=== PATIENT | female | born 1960 | race Caucasian/White ===

== ENCOUNTER 2017-05-06 16:06 | Emergency (ER) | payer OTHER ==
[~2017-05-06] VITALS: Ht 165.1 cm; Wt 65.0 kg
[2017-05-06 16:36] LABS: HEMATOCRIT 49.7 % (34.6-47.8); HEMOGLOBIN 16.9 g/dL (11.7-16.4); WHITE BLOOD COUNT 9.3 x10^3/uL (3.4-10)
[2017-05-06 16:54] LABS: BLOOD UREA NITROGEN 15 mg/dL (7-18)
[2017-05-06 16:59] LABS: ACETAMINOPHEN < 2 mcg/mL (10-30)
[2017-05-06 17:24] LABS: DAU SCREEN DISCLAIMER
[2017-05-06 23:11] VITALS: BP 136/82
== END 2017-05-07 00:48 | disposition home or self-care (01) ==
LOC: ED 17:21
DX: R45.851 Suicidal ideations (principal); F41.1 Generalized anxiety disorder; F10.120 Alcohol abuse with intoxication, uncomplicated; F43.12 Post-traumatic stress disorder, chronic; F32.0 Major depressive disorder, single episode, mild
CPT/HCPCS: 36415; 80048; 80307; 80329; 82040; 85025; 99284; G0480

== ENCOUNTER 2017-09-13 09:20 | Emergency (ER) | payer OTHER ==
[~2017-09-13] VITALS: Ht 154.9 cm; Wt 67.3 kg
[2017-09-13 09:42] VITALS: BP 118/73
[2017-09-13 10:41] LABS: BASOPHILS # (AUTO) 0.06 x10^3/uL (0-0.1); BASOPHILS % (AUTO) 1 % (0-1); EOSINOPHILS # (AUTO) 0.09 x10^3/uL (0-0.4); EOSINOPHILS % (AUTO) 1 % (1-7); LYMPHOCYTES # (AUTO) 1.03 x10^3/uL (1-3.4); LYMPHOCYTES % (AUTO) 8 % (22-44); MD NO; MEAN CORPUSCULAR HEMOGLOBIN 34.4 pg (27.0-34.8); MEAN CORPUSCULAR HGB CONC 33.9 g/dL (32.4-35.8); MEAN CORPUSCULAR VOLUME 101.6 fL (80-100); MEAN PLATELET VOLUME 8.7 fL (7.4-10.4); MONOCYTES # (AUTO) 0.94 x10^3/uL (0.2-0.8); MONOCYTES % (AUTO) 7 % (2-9); NEUTROPHILS # (AUTO) 11.02 x10^3/uL (1.8-6.8); NEUTROPHILS % (AUTO) 84 % (42-75); PLATELET COUNT 265 x10^3/uL (130-400); RED BLOOD COUNT 4.33 x10^6/uL (3.82-5.3)
[2017-09-13 10:52] LABS: ALANINE AMINOTRANSFERASE 43 U/L (12-78); ALBUMIN 3.7 g/dL (3.4-5.0); ANION GAP 7 mmol/L (5-15); CALCIUM 9.2 mg/dL (8.5-10.1); CHLORIDE 110 mmol/L (98-107); CREATININE 1.57 mg/dL (0.55-1.02)
[2017-09-13 10:55] LABS: ALKALINE PHOSPHATASE 89 U/L (45-117); BILIRUBIN,TOTAL 0.8 mg/dL (0.2-1.0)
[2017-09-13] MEDS ORDERED: RANI150T4 PO (12:04)
[2017-09-13] MEDS ORDERED: BUSP5TAB2 PO (12:04)
[2017-09-13] MEDS ORDERED: ALPR0.5T6 PO (12:04)
[2017-09-13] MEDS ORDERED: LISI-170 PO (12:04)
[2017-09-13] MEDS ORDERED: CETI-158 PO (12:04)
== END 2017-09-13 12:56 | disposition home or self-care (01) ==
LOC: ED 11:59
DX: R10.13 Epigastric pain (principal); B02.9 Zoster without complications
CPT/HCPCS: 36415; 80053; 83690; 85025; 99284

== ENCOUNTER → 2017-12-08 | Outpatient (CLI) | payer OTHER ==
[~2017-12-08] MED LIST: ALPR0.5T6 PO; BUSP5TAB2 PO; CETI-158 PO; LISI-170 PO; RANI150T4 PO
== END | disposition home or self-care (01) ==
LOC: CFH 09:00
PROVIDERS: ATTEND Internal Medicine
DX: Z12.31 Encounter for screening mammogram for malignant neoplasm of breast (principal)
CPT/HCPCS: 77067

== ENCOUNTER 2018-03-07 10:36 | Inpatient (IN) | payer OTHER ==
[~2018-03-07] VITALS: Ht 170.2 cm; Wt 64.8 kg
[2018-03-07] MEDS ORDERED: NALOXONE 1 MG/ML, 2ML ONE (10:57)
[2018-03-07] MEDS ORDERED: NALOXONE 0.4 MG/ML, 1ML IVPush ONE (11:00)
[2018-03-07] MEDS ORDERED: SODIUM CHLORIDE FLUSH 10ML SYR IVF ONE (11:00)
[2018-03-07] MEDS ORDERED: PLEASE ENTER HEIGHT AND WEIGHT MC SCH (11:00)
[2018-03-07 11:07] LABS: BASOPHILS # (AUTO) 0.02 x10^3/uL (0-0.1); BASOPHILS % (AUTO) 0 % (0-1); EOSINOPHILS # (AUTO) 0.18 x10^3/uL (0-0.4); EOSINOPHILS % (AUTO) 2 % (1-7); LYMPHOCYTES # (AUTO) 2.02 x10^3/uL (1-3.4); LYMPHOCYTES % (AUTO) 26 % (22-44); MD NO; MEAN CORPUSCULAR HEMOGLOBIN 35.3 pg (27.0-34.8); MEAN CORPUSCULAR HGB CONC 34.6 g/dL (32.4-35.8); MEAN CORPUSCULAR VOLUME 102.1 fL (80-100); MEAN PLATELET VOLUME 8.2 fL (7.4-10.4); MONOCYTES # (AUTO) 0.55 x10^3/uL (0.2-0.8); MONOCYTES % (AUTO) 7 % (2-9); NEUTROPHILS # (AUTO) 5.14 x10^3/uL (1.8-6.8); NEUTROPHILS % (AUTO) 65 % (42-75); PLATELET COUNT 296 x10^3/uL (130-400); RED BLOOD COUNT 4.19 x10^6/uL (3.82-5.3); RED CELL DISTRIBUTION WIDTH 14.9 % (9.6-15.2)
[2018-03-07 11:20] LABS: ALANINE AMINOTRANSFERASE 37 U/L (12-78); ALBUMIN 3.2 g/dL (3.4-5.0); ANION GAP 8 mmol/L (5-15); CALCIUM 8.3 mg/dL (8.5-10.1); CHLORIDE 113 mmol/L (98-107); CREATININE 0.62 mg/dL (0.55-1.02); SALICYLATE LEVEL 5.7 mg/dL (2.8-20.0)
[2018-03-07 11:24] LABS: ALKALINE PHOSPHATASE 73 U/L (45-117); BILIRUBIN,TOTAL 0.1 mg/dL (0.2-1.0); TOTAL PROTEIN 6.4 g/dL (6.4-8.2); TROPONIN I < 0.015 ng/mL (0.000-0.045)
[2018-03-07] MEDS ORDERED: ETOMIDATE 40 MG/20 ML ONE (12:00)
[2018-03-07] MEDS ORDERED: PROPOFOL 10 MG/ML, 100ML IV ONE (12:00)
[2018-03-07] MEDS ORDERED: ROCURONIUM 10 MG/ML,10ML ONE (12:00)
[2018-03-07 12:22] LABS: MICROSCOPIC INDICATED
[2018-03-07] MEDS ORDERED: PROPOFOL 100 ML IV PRN (12:30)
[2018-03-07] MEDS ORDERED: ROCURONIUM 10 MG/ML,10ML IVPush ONE (12:30)
[2018-03-07] MEDS ORDERED: ETOMIDATE 20 MG/10 ML IVPush ONE (12:30)
[2018-03-07 12:42] LABS: CULTURE INDICATED? NO
[2018-03-07 12:47] LABS: AMPHETAMINE SCREEN, URINE Negative (Negative); BARBITURATE SCREEN, URINE Negative (Negative); BENZODIAZEPINE SCREEN, URINE Positive (Negative); CANNABINOID SCREEN, URINE Negative (Negative); COCAINE SCREEN, URINE Negative (Negative); METHADONE SCREEN, URINE Negative (Negative); OPIATE SCREEN, URINE Negative (Negative)
[2018-03-07 13:12] VITALS: BP 165/92
[2018-03-07 13:17] LABS: FIO2 100 %
[2018-03-07] MEDS ORDERED: ONDANSETRON 2MG/ML, 2ML IVPush PRN (15:30)
[2018-03-07] MEDS ORDERED: THIAMINE 200 MG, MVI ADULT 10 ML, FOLIC ACID 1 MG in D5%-0.9% NACL 1,000 ML IV SCH (15:30)
[2018-03-07] MEDS ORDERED: LACTULOSE 20 GM/30 ML UDC NG PRN (16:00)
[2018-03-07] MEDS ORDERED: SENNOSIDES 8.8 MG/5 ML ORAL SOL NG PRN (16:00)
[2018-03-07] MEDS ORDERED: BISACODYL 10 MG SUPP PR PRN (16:00)
[2018-03-07] MEDS ORDERED: ENOXAPARIN 40 MG/0.4 ML SQ SCH (16:00)
[2018-03-07] MEDS ORDERED: PHARMACY MAY ADJ FOR RENAL FX MC SCH (16:00)
[2018-03-07] MEDS ORDERED: SENNA/DOCUSATE TABLET NG PRN (16:00)
[2018-03-07] MEDS ORDERED: LIDOCAINE-MPF 1%, 2ML ENDO PRN (16:00)
[2018-03-07] MEDS: ENOXAPARIN 40 MG/0.4 ML SQ SCH (16:04)
[2018-03-07] MEDS: FAMOTIDINE 20 MG/2 ML IV SCH (16:10)
[2018-03-07] MEDS: ALBUTEROL/IPRATROPIUM 2.5MG/0.5MG, 3 ML INLINE SCH ×3 (16:24→23:21)
[2018-03-07] MEDS: SODIUM CHLORIDE 0.9% 1,000 ML IV SCH (16:30)
[2018-03-07 16:34] LABS: TRIGLYCERIDES 132 mg/dL (50-200)
[2018-03-07 16:36] LABS: TROPONIN I < 0.015 ng/mL (0.000-0.045)
[2018-03-07] MEDS: PROPOFOL 100 ML IV PRN (20:41)
[2018-03-07] MEDS ORDERED: FAMOTIDINE 20 MG/2 ML IVPush SCH (21:00)
[2018-03-07 21:54] LABS: TROPONIN I < 0.015 ng/mL (0.000-0.045)
[2018-03-08] MEDS: FENTANYL PF 100 MCG/2ML IVPush PRN ×3 (00:12→05:32)
[2018-03-08] MEDS: SODIUM CHLORIDE 0.9% 1,000 ML IV SCH (02:46)
[2018-03-08] MEDS: PROPOFOL 100 ML IV PRN (02:46)
[2018-03-08] MEDS: ALBUTEROL/IPRATROPIUM 2.5MG/0.5MG, 3 ML INLINE SCH ×2 (03:27→06:29)
[2018-03-08] MEDS: FAMOTIDINE 20 MG/2 ML IV SCH (03:38)
[2018-03-08 04:00] VITALS: BP 146/88
[2018-03-08 04:23] LABS: BASOPHILS # (AUTO) 0.01 x10^3/uL (0-0.1); BASOPHILS % (AUTO) 0 % (0-1); EOSINOPHILS # (AUTO) 0.06 x10^3/uL (0-0.4); EOSINOPHILS % (AUTO) 1 % (1-7); LYMPHOCYTES # (AUTO) 1.38 x10^3/uL (1-3.4); LYMPHOCYTES % (AUTO) 13 % (22-44); MD NO; MEAN CORPUSCULAR HEMOGLOBIN 34.6 pg (27.0-34.8); MEAN CORPUSCULAR HGB CONC 33.6 g/dL (32.4-35.8); MEAN CORPUSCULAR VOLUME 102.9 fL (80-100); MEAN PLATELET VOLUME 8.4 fL (7.4-10.4); MONOCYTES # (AUTO) 0.47 x10^3/uL (0.2-0.8); MONOCYTES % (AUTO) 5 % (2-9); NEUTROPHILS # (AUTO) 8.55 x10^3/uL (1.8-6.8); NEUTROPHILS % (AUTO) 82 % (42-75); PLATELET COUNT 243 x10^3/uL (130-400); RED BLOOD COUNT 3.92 x10^6/uL (3.82-5.3); RED CELL DISTRIBUTION WIDTH 14.9 % (9.6-15.2)
[2018-03-08 04:35] LABS: ANION GAP 4 mmol/L (5-15); CALCIUM 7.8 mg/dL (8.5-10.1); CHLORIDE 118 mmol/L (98-107)
[2018-03-08 04:48] LABS: ALANINE AMINOTRANSFERASE 32 U/L (12-78); ALKALINE PHOSPHATASE 60 U/L (45-117); BILIRUBIN,TOTAL 0.5 mg/dL (0.2-1.0); CREATININE 0.65 mg/dL (0.55-1.02)
[2018-03-08] MEDS ORDERED: MAGNESIUM SULFATE IN WATER 50 ML IV ONE (07:00)
[2018-03-08] MEDS ORDERED: DEXTROSE 5% 1,000 ML IV SCH (07:00)
[2018-03-08] MEDS: AMPICILLIN/SULBACTAM 3 GM in SODIUM CHLORIDE 0.9% 100 ML IV SCH ×3 (09:10→22:32)
[2018-03-08] MEDS: FOLIC ACID 1 MG TABLET PO SCH (12:55)
[2018-03-08] MEDS: LISINOPRIL 20 MG TABLET PO SCH (12:55)
[2018-03-08] MEDS: MULTIVITAMINS/MINERALS TABLET PO SCH (12:55)
[2018-03-08] MEDS: THIAMINE 100MG TABLET PO SCH (12:55)
[2018-03-08] MEDS: ENOXAPARIN 40 MG/0.4 ML SQ SCH (15:54)
[2018-03-08 18:33] VITALS: BP 138/89
[2018-03-08] MEDS: FAMOTIDINE 20 MG TABLET PO SCH (22:27)
[2018-03-08] MEDS: ACETAMINOPHEN 325 MG TABLET PO PRN (22:27)
[2018-03-09 02:20] VITALS: BP 125/69
[2018-03-09 05:12] LABS: BASOPHILS # (AUTO) 0.02 x10^3/uL (0-0.1); BASOPHILS % (AUTO) 0 % (0-1); EOSINOPHILS # (AUTO) 0.15 x10^3/uL (0-0.4); EOSINOPHILS % (AUTO) 2 % (1-7); LYMPHOCYTES % (AUTO) 14 % (22-44); MD NO; MEAN CORPUSCULAR HEMOGLOBIN 35.6 pg (27.0-34.8); MEAN CORPUSCULAR HGB CONC 34.6 g/dL (32.4-35.8); MEAN PLATELET VOLUME 9.2 fL (7.4-10.4); MONOCYTES # (AUTO) 0.38 x10^3/uL (0.2-0.8); MONOCYTES % (AUTO) 5 % (2-9); NEUTROPHILS # (AUTO) 6.17 x10^3/uL (1.8-6.8); NEUTROPHILS % (AUTO) 79 % (42-75); PLATELET COUNT 210 x10^3/uL (130-400); RED BLOOD COUNT 3.55 x10^6/uL (3.82-5.3); RED CELL DISTRIBUTION WIDTH 14.3 % (9.6-15.2)
[2018-03-09 05:13] LABS: ALBUMIN 2.7 g/dL (3.4-5.0); ANION GAP 6 mmol/L (5-15); CALCIUM 8.2 mg/dL (8.5-10.1); CHLORIDE 112 mmol/L (98-107)
[2018-03-09] MEDS: AMPICILLIN/SULBACTAM 3 GM in SODIUM CHLORIDE 0.9% 100 ML IV SCH (05:15)
[2018-03-09 05:17] LABS: ALANINE AMINOTRANSFERASE 22 U/L (12-78); ALKALINE PHOSPHATASE 61 U/L (45-117); CREATININE 0.51 mg/dL (0.55-1.02); TOTAL PROTEIN 5.5 g/dL (6.4-8.2)
[2018-03-09 07:38] VITALS: BP 152/83
[2018-03-09] MEDS: AMOXICILLIN 500 MG CAPSULE PO SCH ×2 (08:18→20:29)
[2018-03-09] MEDS: LACTOBACILLUS CHEW TABLET PO SCH ×3 (08:18→20:29)
[2018-03-09] MEDS: FAMOTIDINE 20 MG TABLET PO SCH ×2 (08:19→20:29)
[2018-03-09] MEDS: DOXYCYCLINE 100MG CAP PO SCH ×2 (08:19→20:29)
[2018-03-09] MEDS: MULTIVITAMINS/MINERALS TABLET PO SCH (08:19)
[2018-03-09] MEDS: FOLIC ACID 1 MG TABLET PO SCH (11:20)
[2018-03-09] MEDS: LISINOPRIL 20 MG TABLET PO SCH (11:20)
[2018-03-09] MEDS: THIAMINE 100MG TABLET PO SCH (11:20)
[2018-03-09 11:22] VITALS: BP 162/80
[2018-03-09] MEDS ORDERED: LORazepam 1MG TABLET PO PRN ×3 (11:30)
[2018-03-09] MEDS ORDERED: POTASSIUM CHLORIDE 20 MEQ TAB.ER.PRT PO ONE (11:30)
[2018-03-09] MEDS ORDERED: LORazepam 0.5MG TABLET PO PRN (11:30)
[2018-03-09] MEDS: ENOXAPARIN 40 MG/0.4 ML SQ SCH (15:05)
[2018-03-09] MEDS: ACETAMINOPHEN 325 MG TABLET PO PRN (15:05)
[2018-03-09 19:05] VITALS: BP 162/82
[2018-03-09] MEDS: LORazepam 1MG TABLET PO PRN (22:20)
[2018-03-10 01:20] VITALS: BP 164/82
[2018-03-10 05:33] LABS: BASOPHILS # (AUTO) 0.03 x10^3/uL (0-0.1); BASOPHILS % (AUTO) 1 % (0-1); EOSINOPHILS # (AUTO) 0.16 x10^3/uL (0-0.4); EOSINOPHILS % (AUTO) 3 % (1-7); LYMPHOCYTES # (AUTO) 1.31 x10^3/uL (1-3.4); LYMPHOCYTES % (AUTO) 21 % (22-44); MD NO; MEAN CORPUSCULAR HEMOGLOBIN 35.5 pg (27.0-34.8); MEAN CORPUSCULAR HGB CONC 34.8 g/dL (32.4-35.8); MONOCYTES # (AUTO) 0.42 x10^3/uL (0.2-0.8); MONOCYTES % (AUTO) 7 % (2-9); NEUTROPHILS # (AUTO) 4.37 x10^3/uL (1.8-6.8); NEUTROPHILS % (AUTO) 69 % (42-75); PLATELET COUNT 209 x10^3/uL (130-400); RED BLOOD COUNT 3.64 x10^6/uL (3.82-5.3); RED CELL DISTRIBUTION WIDTH 13.9 % (9.6-15.2)
[2018-03-10 05:35] LABS: ANION GAP 6 mmol/L (5-15); CALCIUM 8.7 mg/dL (8.5-10.1); CHLORIDE 110 mmol/L (98-107)
[2018-03-10 05:36] LABS: CREATININE 0.49 mg/dL (0.55-1.02); TRIGLYCERIDES 87 mg/dL (50-200)
[2018-03-10] MEDS ORDERED: POTASSIUM CHLORIDE 20 MEQ TAB.ER.PRT PO ONE (07:00)
[2018-03-10] MEDS ORDERED: MAGNESIUM SULFATE PMX 2GM/50ML 50 ML IV ONE (07:00)
[2018-03-10 07:20] VITALS: BP 163/90
[2018-03-10] MEDS: AMOXICILLIN 500 MG CAPSULE PO SCH ×2 (09:15→22:58)
[2018-03-10] MEDS: DOXYCYCLINE 100MG CAP PO SCH ×2 (09:16→22:58)
[2018-03-10] MEDS: ISOSORBIDE DINITRATE 10 MG TABLET PO SCH ×3 (09:17→22:58)
[2018-03-10] MEDS: MULTIVITAMINS/MINERALS TABLET PO SCH (09:18)
[2018-03-10] MEDS: FAMOTIDINE 20 MG TABLET PO SCH ×2 (09:18→22:58)
[2018-03-10] MEDS: LISINOPRIL 20 MG TABLET PO SCH (09:18)
[2018-03-10] MEDS: THIAMINE 100MG TABLET PO SCH (09:18)
[2018-03-10] MEDS: FOLIC ACID 1 MG TABLET PO SCH (09:19)
[2018-03-10] MEDS: LACTOBACILLUS CHEW TABLET PO SCH ×3 (09:19→22:58)
[2018-03-10 13:20] VITALS: BP 143/80
[2018-03-10] MEDS: ENOXAPARIN 40 MG/0.4 ML SQ SCH (16:30)
[2018-03-10] MEDS: LORazepam 1MG TABLET PO PRN (18:43)
[2018-03-10 18:47] VITALS: BP 142/75
[2018-03-11 00:02] VITALS: BP 145/81
[2018-03-11] MEDS: ACETAMINOPHEN 325 MG TABLET PO PRN (00:03)
[2018-03-11 00:30] VITALS: BP_SYST 133
[2018-03-11 05:41] LABS: ANION GAP 7 mmol/L (5-15); CALCIUM 9.3 mg/dL (8.5-10.1); CHLORIDE 110 mmol/L (98-107)
[2018-03-11 05:52] LABS: BASOPHILS # (AUTO) 0.03 x10^3/uL (0-0.1); BASOPHILS % (AUTO) 1 % (0-1); EOSINOPHILS # (AUTO) 0.17 x10^3/uL (0-0.4); EOSINOPHILS % (AUTO) 3 % (1-7); LYMPHOCYTES # (AUTO) 1.31 x10^3/uL (1-3.4); LYMPHOCYTES % (AUTO) 20 % (22-44); MD NO; MEAN CORPUSCULAR HEMOGLOBIN 34.9 pg (27.0-34.8); MEAN CORPUSCULAR VOLUME 102.7 fL (80-100); MEAN PLATELET VOLUME 9.1 fL (7.4-10.4); MONOCYTES # (AUTO) 0.61 x10^3/uL (0.2-0.8); MONOCYTES % (AUTO) 9 % (2-9); NEUTROPHILS # (AUTO) 4.39 x10^3/uL (1.8-6.8); NEUTROPHILS % (AUTO) 68 % (42-75); PLATELET COUNT 251 x10^3/uL (130-400); RED BLOOD COUNT 3.83 x10^6/uL (3.82-5.3); RED CELL DISTRIBUTION WIDTH 13.8 % (9.6-15.2)
[2018-03-11 07:06] VITALS: BP 158/89
[2018-03-11] MEDS: LACTOBACILLUS CHEW TABLET PO SCH (08:49)
[2018-03-11] MEDS: FAMOTIDINE 20 MG TABLET PO SCH (08:49)
[2018-03-11] MEDS: MULTIVITAMINS/MINERALS TABLET PO SCH (08:49)
[2018-03-11] MEDS: AMOXICILLIN 500 MG CAPSULE PO SCH (08:49)
[2018-03-11] MEDS: DOXYCYCLINE 100MG CAP PO SCH (08:51)
[2018-03-11] MEDS: ISOSORBIDE DINITRATE 10 MG TABLET PO SCH (08:51)
[2018-03-11] MEDS ORDERED: DOXY100C2 PO (09:01)
[2018-03-11] MEDS ORDERED: HYDR-3342 PO (09:01)
[2018-03-11] MEDS ORDERED: AMOX-291 PO (09:01)
[2018-03-11] MEDS ORDERED: ISOS10TA2 PO (09:01)
[2018-03-11] MEDS ORDERED: ACID1TAB7 PO (09:01)
[2018-03-11] MEDS ORDERED: THIA100T6 PO (09:01)
[2018-03-11 12:14] VITALS: BP 167/99
[2018-03-11] MEDS: THIAMINE 100MG TABLET PO SCH (12:17)
[2018-03-11] MEDS: LISINOPRIL 20 MG TABLET PO SCH (12:17)
[2018-03-11] MEDS: FOLIC ACID 1 MG TABLET PO SCH (12:17)
== END 2018-03-11 14:40 | disposition home or self-care (01) | DRG 917 ==
LOC: ED 11:31 → EDIP 11:47 → CCU 13:06 → 4EST 03-08 17:30
PROVIDERS: ADMIT Hospitalist; ATTEND Hospitalist
PROC: 5A1935Z Respiratory Ventilation, Less than 24 Consecutive Hours (ICD-10-PCS; principal; 2018-03-07)
PROC: 0BH17EZ Insertion of Endotracheal Airway into Trachea, Via Natural or Artificial Opening (ICD-10-PCS; 2018-03-07)
DX: T42.4X2A Poisoning by benzodiazepines, intentional self-harm, initial encounter (principal); G92 Toxic encephalopathy; J96.00 Acute respiratory failure, unspecified whether with hypoxia or hypercapnia; E87.0 Hyperosmolality and hypernatremia; J98.11 Atelectasis; Z99.11 Dependence on respirator [ventilator] status; F10.229 Alcohol dependence with intoxication, unspecified; E83.42 Hypomagnesemia; E87.6 Hypokalemia; F32.9 Major depressive disorder, single episode, unspecified; F41.9 Anxiety disorder, unspecified; F43.10 Post-traumatic stress disorder, unspecified; G47.00 Insomnia, unspecified; I10 Essential (primary) hypertension; Z88.2 Allergy status to sulfonamides; T51.92XA Toxic effect of unspecified alcohol, intentional self-harm, initial encounter; Y92.89 Other specified places as the place of occurrence of the external cause; Z71.41 Alcohol abuse counseling and surveillance of alcoholic; Z71.6 Tobacco abuse counseling; F17.200 Nicotine dependence, unspecified, uncomplicated; Z91.041 Radiographic dye allergy status; Z79.899 Other long term (current) drug therapy
CPT/HCPCS: 36415; 36600; 70450; 71045; 80048; 80053; 80307; 80329; 81001; 82140; 82803; 83735; 84100; 84443; 84478; 84484; 85025; 87070; 87081; 87205; 93005; 94002; 94003; 94640; 96374; 99152; 99153; J0295; J1650; J2310; J2704; J3010; J3411; J7042; J7070; J7620; G0480; J3475; J7030; S0028

== ENCOUNTER 2019-10-16 20:04 | Emergency (ER) | payer OTHER ==
[~2019-10-16] VITALS: Ht 154.9 cm; Wt 62.7 kg
[~2019-10-16 20:04] MED LIST changes: +ACID1TAB7 PO; +AMOX-291 PO; +DOXY100C2 PO; +HYDR-3342 PO; +ISOS10TA2 PO; +THIA100T67 PO
--- NOTE | 2019-10-16 20:46 | NUR ---
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
--- NOTE | 2019-10-16 20:50 | NUR ---
PT STATED "SHE HAS HAD CHEST PRESSURE FOR THE LAST 4-5 HRS WITH DIZZINESS". PT STATED "SH HAS HAD A LOT OF STREESS LATLEY"
[2019-10-16 21:00] LABS: BASOPHILS # (AUTO) 0.03 x10^3/uL (0-0.1); BASOPHILS % (AUTO) 0 % (0-1); EOSINOPHILS # (AUTO) 0.08 x10^3/uL (0-0.4); EOSINOPHILS % (AUTO) 1 % (1-7); LYMPHOCYTES # (AUTO) 1.17 x10^3/uL (1-3.4); LYMPHOCYTES % (AUTO) 12 % (22-44); MD NO; MEAN CORPUSCULAR HEMOGLOBIN 34.4 pg (27.0-34.8); MEAN CORPUSCULAR VOLUME 101.4 fL (80-100); MEAN PLATELET VOLUME 8.2 fL (7.4-10.4); MONOCYTES % (AUTO) 11 % (2-9); NEUTROPHILS # (AUTO) 7.43 x10^3/uL (1.8-6.8); NEUTROPHILS % (AUTO) 76 % (42-75); PLATELET COUNT 237 x10^3/uL (130-400); RED BLOOD COUNT 4.13 x10^6/uL (3.82-5.3); RED CELL DISTRIBUTION WIDTH 15.8 % (9.6-15.2)
[2019-10-16 21:11] LABS: ALBUMIN 3.1 g/dL (3.4-5.0); ANION GAP 8 mmol/L (5-15); CALCIUM 9.8 mg/dL (8.5-10.1); CHLORIDE 102 mmol/L (98-107); CREATININE 0.56 mg/dL (0.55-1.02)
--- NOTE | 2019-10-16 21:12 | NUR ---
pt placed on all monitore, in nad at this time
[2019-10-16 21:14] LABS: TROPONIN I < 0.015 ng/mL (0.000-0.045)
[2019-10-16 21:18] VITALS: BP 152/85
[2019-10-16] MEDS ORDERED: LORazepam 1MG TABLET ONE (21:57)
[2019-10-16] MEDS ORDERED: LORazepam 1MG TABLET PO ONE (22:00)
== END 2019-10-16 21:53 | disposition home or self-care (01) ==
LOC: ED 21:30
DX: R07.89 Other chest pain (principal); R00.0 Tachycardia, unspecified; F41.1 Generalized anxiety disorder; I10 Essential (primary) hypertension; I25.2 Old myocardial infarction
CPT/HCPCS: 36415; 71046; 80048; 82040; 84484; 85025; 93005; 99285

== ENCOUNTER 2020-07-05 12:48 | Emergency (ER) | payer OTHER ==
[~2020-07-05] VITALS: Ht 154.9 cm; Wt 66.4 kg
--- NOTE | 2020-07-05 13:00 | NUR ---
PT BIB POV FOR ARTEAGA, EXPRESSIVE/RECEPTIVE APHASIA AND POSSIBLE FACIAL DROOP PER FRIEND THAT STARTED ABOUT 2 HOURS AURICULAR THERAPIST. PT ON MONIOTR AND 2 IV'S BEING STARTED. [facility] WAS CALLED.
[2020-07-05] MEDS ORDERED: DIPHENHYDRAMINE 50 MG/ML, 1ML ONE (13:02)
[2020-07-05] MEDS ORDERED: methylPREDNISolone SOD SUCC 125 MG/2 ML ONE (13:02)
[2020-07-05 13:07] LABS: BASOPHILS % (AUTO) 1 % (0-1); EOSINOPHILS % (AUTO) 2 % (1-7); LYMPHOCYTES % (AUTO) 24 % (22-44); MEAN CORPUSCULAR HEMOGLOBIN 34.1 pg (27.0-34.8); MEAN CORPUSCULAR HGB CONC 34.2 g/dL (32.4-35.8); MEAN PLATELET VOLUME 8.8 fL (7.4-10.4); MONOCYTES % (AUTO) 8 % (2-9); NEUTROPHILS % (AUTO) 64 % (42-75); PLATELET COUNT 310 x10^3/uL (130-400); RED BLOOD COUNT 4.46 x10^6/uL (3.82-5.3); RED CELL DISTRIBUTION WIDTH 13.4 % (9.6-15.2)
[2020-07-05 13:08] LABS: MD NO
--- NOTE | 2020-07-05 13:13 | NUR ---
PT REPORTS ALLERGY TO IODINE SO PT WAS MEDICATED PER DR. CALDERON PRIOR TO CT WITH CONTRAST.
[2020-07-05 13:18] LABS: INTERNATIONAL NORMALIZED RATIO 0.99 (0.93-1.1); PROTHROMBIN TIME 10.5 Seconds (9.6-11.5)
--- NOTE | 2020-07-05 13:23 | NUR ---
BACK FROM CT. DR. GLEZ NEUROLOGIST AT BEDSIDE VIA TELEROBOT.
[2020-07-05] MEDS ORDERED: OMNIPAQUE 350 MG/ML, 75ML BOTTLE ONE (13:28)
[2020-07-05] MEDS ORDERED: PLEASE ENTER HEIGHT AND WEIGHT MC SCH (13:30)
[2020-07-05] MEDS ORDERED: methylPREDNISolone SOD SUCC 125 MG/2 ML IVPush ONE (13:30)
[2020-07-05] MEDS ORDERED: DIPHENHYDRAMINE 50 MG/ML, 1ML IVPush ONE (13:30)
--- NOTE | 2020-07-05 13:58 | NUR ---
DR. CALDERON AT BEDSIDE DISCUSSINTG CT RESULTS WITH PATIENT. PT INITIALLY OPPOSED TO BE ADMITTING UNLESS SHE RECEIVED MEDICATIONS FOR ANXIETY LATER.
[2020-07-05] MEDS ORDERED: SODIUM CHLORIDE FLUSH 10ML SYR IVF PRN (14:30)
--- NOTE | 2020-07-05 14:42 | NUR ---
DR. CALDERON AT BEDSIDE TO DISCUSS POC AFTER RECENT NIHSS OF 2 POINTS.
[2020-07-05 14:50] VITALS: BP 166/75
--- NOTE | 2020-07-05 15:02 | NUR ---
Patient to be transferred to [facility] ED. Accepted by Dr. Diaz - Interventional Neuro and Dr. Simmons - ED. Paperwork faxed to [facility] and [facility] ETA [phone]. Patient with [employer] insurance so no need to call [place].
--- NOTE | 2020-07-05 15:03 | NUR ---
REPORT GIVEN TO AUGUST HERRERA AT [facility].
== END 2020-07-05 15:17 | disposition short-term general hospital (02) ==
LOC: ED 13:14 → UNDOADMIN 14:41 → EDIP 14:41 → ED 15:11
DX: I63.512 Cerebral infarction due to unspecified occlusion or stenosis of left middle cerebral artery (principal); R29.702 NIHSS score 2; R00.0 Tachycardia, unspecified; I10 Essential (primary) hypertension
CPT/HCPCS: 36415; 70450; 70496; 70498; 80047; 85025; 85610; 85730; 93005; 96374; 96375; 99291; J1200; J2930; Q9967

== ENCOUNTER 2020-10-22 11:10 | Day surgery (SDC) | payer OTHER ==
[~2020-10-22] VITALS: Ht 156.2 cm; Wt 65.9 kg
[~2020-10-22 11:10] MED LIST changes: -ALPR0.5T6 PO; +ALPR0.5T93 PO
[2020-10-22] MEDS ORDERED: LIDOCAINE 2%, 20ML ONE (11:58)
== END 2020-10-22 13:05 | disposition home or self-care (01) ==
LOC: CACL 11:10
PROVIDERS: ATTEND Internal Medicine Cardiovascular Disease
DX: I63.9 Cerebral infarction, unspecified (principal); I10 Essential (primary) hypertension; I87.2 Venous insufficiency (chronic) (peripheral); E78.5 Hyperlipidemia, unspecified; F41.9 Anxiety disorder, unspecified; Z79.82 Long term (current) use of aspirin; Z79.891 Long term (current) use of opiate analgesic; Z79.899 Other long term (current) drug therapy; Z88.2 Allergy status to sulfonamides; Z91.041 Radiographic dye allergy status
CPT/HCPCS: 33285; C1764

== ENCOUNTER → 2021-02-25 | Outpatient (CLI) | payer OTHER | END | disposition home or self-care (01) | LOC: CFH 10:45 | PROVIDERS: ATTEND Internal Medicine | DX: Z12.31 Encounter for screening mammogram for malignant neoplasm of breast (principal) | CPT/HCPCS: 77067 ==